=== PATIENT | female | born 1930 | race Caucasian/White ===

== ENCOUNTER 2016-11-20 11:38 | Inpatient (IN) | payer MEDICARE, SELFPAY ==
[~2016-11-20] VITALS: Ht 149.9 cm; Wt 54.6 kg
[2016-11-20] MEDS ORDERED: SODIUM CHLORIDE FLUSH 10ML SYR IVF ONE (12:30)
[2016-11-20 12:52] LABS: ASPARTATE AMINO TRANSFERASE 21 U/L (15-37); BLOOD UREA NITROGEN 20 mg/dL (7-18)
[2016-11-20 12:55] LABS: IS PT STATUS REG ER OR PRE ER? YES
[2016-11-20] MEDS ORDERED: FUROSEMIDE 40 MG/4 ML IV ONE (13:30)
[2016-11-20] MEDS ORDERED: ENOXAPARIN 40 MG/0.4 ML SQ SCH ×2 (14:00)
[2016-11-20] MEDS ORDERED: VANCOMYCIN PER PHARMACY MC PRN (14:00)
[2016-11-20] MEDS ORDERED: AMPICILLIN/SULBACTAM 1,500 MG in SODIUM CHLORIDE 0.9% 50 ML IV SCH (14:00)
[2016-11-20] MEDS ORDERED: MAGNESIUM SULFATE PMX 2GM/50ML 50 ML IV ONE (14:00)
[2016-11-20 16:50] VITALS: BP 106/71
[2016-11-20] MEDS: AMPICILLIN/SULBACTAM 1,500 MG in SODIUM CHLORIDE 0.9% 50 ML IV SCH (16:52)
[2016-11-20] MEDS ORDERED: PHARMACOKINETIC MONITORING MC PRN (17:00)
[2016-11-20] MEDS ORDERED: VANCOMYCIN PMX 1GM/200ML 200 ML IVPB ONE (17:30)
[2016-11-20 18:46] VITALS: BP 100/58
[2016-11-20 19:10] LABS: IS PT STATUS REG ER OR PRE ER? NO
[2016-11-20] MEDS ORDERED: ALBUTEROL/IPRATROPIUM 2.5MG/0.5MG, 3 ML NPPB PRN (22:30)
[2016-11-21] MEDS: AMPICILLIN/SULBACTAM 1,500 MG in SODIUM CHLORIDE 0.9% 50 ML IV SCH ×5 (00:30→20:17)
[2016-11-21 01:16] VITALS: BP 118/64
[2016-11-21 01:21] LABS: IS PT STATUS REG ER OR PRE ER? NO
[2016-11-21 07:08] LABS: BLOOD UREA NITROGEN 18 mg/dL (7-18)
[2016-11-21 07:40] LABS: ASPARTATE AMINO TRANSFERASE 17 U/L (15-37)
[2016-11-21 08:22] VITALS: BP 111/65
[2016-11-21] MEDS ORDERED: FUROSEMIDE 20 MG/2 ML IV SCH (09:00)
[2016-11-21] MEDS ORDERED: DEXTROSE 4 GM TAB.CHEW PO PRN (09:30)
[2016-11-21] MEDS ORDERED: GLUCAGON 1 MG IM PRN (09:30)
[2016-11-21] MEDS ORDERED: DEXTROSE 50%, 50ML SYRINGE IVPush PRN (09:30)
[2016-11-21] MEDS ORDERED: VANCOMYCIN PMX 1GM/200ML 200 ML IV SCH (10:00)
[2016-11-21] MEDS: LEVOTHYROXINE 100 MCG INJ IVPush SCH (10:02)
[2016-11-21] MEDS: SODIUM CHLORIDE FLUSH 10ML SYR IVF SCH ×2 (10:03→20:17)
[2016-11-21] MEDS: VANCOMYCIN PMX 1GM/200ML 200 ML IV SCH ×2 (11:12→13:04)
[2016-11-21 13:54] VITALS: BP 105/66
[2016-11-21] MEDS: D5%-0.45NACL+KCL 20MEQ 1,000 ML IV SCH (16:47)
[2016-11-21] MEDS: ENOXAPARIN 30 MG/0.3 ML SQ SCH (18:01)
[2016-11-21 19:05] VITALS: BP 120/80
[2016-11-22 01:34] VITALS: BP 103/58
[2016-11-22] MEDS: AMPICILLIN/SULBACTAM 1,500 MG in SODIUM CHLORIDE 0.9% 50 ML IV SCH ×4 (02:22→21:46)
[2016-11-22 04:49] LABS: ASPARTATE AMINO TRANSFERASE 13 U/L (15-37); BLOOD UREA NITROGEN 17 mg/dL (7-18)
[2016-11-22] MEDS: SODIUM CHLORIDE FLUSH 10ML SYR IVF SCH ×2 (07:55→22:10)
[2016-11-22] MEDS: LEVOTHYROXINE 100 MCG INJ IVPush SCH (07:55)
[2016-11-22 08:04] VITALS: BP 116/65
[2016-11-22] MEDS: D5%-0.45NACL+KCL 20MEQ 1,000 ML IV SCH (11:35)
[2016-11-22] MEDS ORDERED: POTASSIUM CHLORIDE 10% 20 MEQ/15 ML UDC PO SCH (13:00)
[2016-11-22] MEDS: HYDROCORTISONE 100 MG INJ. IVPush SCH ×2 (13:04→22:02)
[2016-11-22] MEDS: FUROSEMIDE 20 MG/2 ML IV SCH (13:04)
[2016-11-22 13:26] VITALS: BP 95/62
[2016-11-22 19:30] VITALS: BP 107/62
[2016-11-22] MEDS: POTASSIUM CHLORIDE 20 MEQ PACKET PO SCH (21:00)
[2016-11-22] MEDS: ENOXAPARIN 30 MG/0.3 ML SQ SCH (21:45)
[2016-11-22] MEDS: VANCOMYCIN PMX 1GM/200ML 200 ML IV SCH (22:46)
[2016-11-23 02:00] VITALS: BP 107/64
[2016-11-23] MEDS: AMPICILLIN/SULBACTAM 1,500 MG in SODIUM CHLORIDE 0.9% 50 ML IV SCH ×4 (02:58→20:58)
[2016-11-23] MEDS: HYDROCORTISONE 100 MG INJ. IVPush SCH ×3 (04:38→20:58)
[2016-11-23 05:44] LABS: BLOOD UREA NITROGEN 14 mg/dL (7-18)
[2016-11-23] MEDS: FUROSEMIDE 20 MG/2 ML IV SCH ×2 (07:22→20:58)
[2016-11-23] MEDS: SODIUM CHLORIDE FLUSH 10ML SYR IVF SCH ×2 (07:22→20:59)
[2016-11-23] MEDS: LEVOTHYROXINE 100 MCG INJ IVPush SCH (07:23)
[2016-11-23] MEDS: POTASSIUM CHLORIDE 20 MEQ PACKET PO SCH ×2 (07:23→20:58)
[2016-11-23 08:30] VITALS: BP 101/61
[2016-11-23] MEDS: D5%-0.45NACL+KCL 20MEQ 1,000 ML IV SCH (09:51)
[2016-11-23 13:43] VITALS: BP 101/64
[2016-11-23 14:42] VITALS: BP 144/79
[2016-11-23 20:04] VITALS: BP 104/63
[2016-11-23] MEDS: ENOXAPARIN 30 MG/0.3 ML SQ SCH (20:58)
[2016-11-24 00:40] VITALS: BP 104/45
[2016-11-24] MEDS: AMPICILLIN/SULBACTAM 1,500 MG in SODIUM CHLORIDE 0.9% 50 ML IV SCH (03:08)
[2016-11-24] MEDS: HYDROCORTISONE 100 MG INJ. IVPush SCH ×3 (05:29→21:35)
[2016-11-24 06:32] LABS: BLOOD UREA NITROGEN 16 mg/dL (7-18)
[2016-11-24 07:23] VITALS: BP 108/67
[2016-11-24] MEDS: FUROSEMIDE 20 MG/2 ML IV SCH (09:42)
[2016-11-24] MEDS: LEVOTHYROXINE 100 MCG INJ IVPush SCH (09:42)
[2016-11-24] MEDS: SODIUM CHLORIDE FLUSH 10ML SYR IVF SCH ×2 (09:43→21:35)
[2016-11-24] MEDS: D5%-0.45NACL+KCL 20MEQ 1,000 ML IV SCH (09:43)
[2016-11-24] MEDS: AMOXICILLIN/CLAV 500-125MG TABLET PO SCH ×2 (12:50→21:35)
[2016-11-24] MEDS: POTASSIUM CHLORIDE 10% 20 MEQ/15 ML UDC PO SCH ×2 (12:51→17:02)
[2016-11-24 13:49] VITALS: BP 101/66
[2016-11-24] MEDS: ENOXAPARIN 30 MG/0.3 ML SQ SCH (17:01)
[2016-11-24] MEDS: HYDROCORTISONE 20 MG TABLET PO SCH (17:01)
[2016-11-24] MEDS: FUROSEMIDE 20 MG TABLET PO SCH (17:01)
[2016-11-24 19:15] VITALS: BP 116/76
[2016-11-25 03:00] VITALS: BP 114/69
[2016-11-25] MEDS: HYDROCORTISONE 100 MG INJ. IVPush SCH (06:11)
[2016-11-25] MEDS: LEVOTHYROXINE 50 MCG TABLET PO SCH (06:11)
[2016-11-25 06:18] LABS: BLOOD UREA NITROGEN 21 mg/dL (7-18)
[2016-11-25 07:37] VITALS: BP 119/78
[2016-11-25] MEDS: FUROSEMIDE 20 MG TABLET PO SCH ×2 (09:18→16:55)
[2016-11-25] MEDS: SODIUM CHLORIDE FLUSH 10ML SYR IVF SCH ×2 (09:18→21:00)
[2016-11-25] MEDS: POTASSIUM CHLORIDE 10% 20 MEQ/15 ML UDC PO SCH ×2 (09:18→21:19)
[2016-11-25] MEDS: HYDROCORTISONE 20 MG TABLET PO SCH ×2 (09:18→16:54)
[2016-11-25] MEDS: AMOXICILLIN/CLAV 500-125MG TABLET PO SCH ×2 (11:04→21:19)
[2016-11-25 13:38] VITALS: BP 102/68
[2016-11-25] MEDS: ENOXAPARIN 30 MG/0.3 ML SQ SCH ×2 (19:00→21:19)
[2016-11-25 19:20] VITALS: BP 103/57
[2016-11-26 02:18] VITALS: BP 96/66
[2016-11-26] MEDS: LEVOTHYROXINE 50 MCG TABLET PO SCH (05:34)
[2016-11-26 06:48] LABS: BLOOD UREA NITROGEN 25 mg/dL (7-18)
[2016-11-26 07:11] VITALS: BP 114/73
[2016-11-26] MEDS: POTASSIUM CHLORIDE 10% 20 MEQ/15 ML UDC PO SCH (09:07)
[2016-11-26] MEDS: HYDROCORTISONE 20 MG TABLET PO SCH ×2 (09:07→17:37)
[2016-11-26] MEDS: SODIUM CHLORIDE FLUSH 10ML SYR IVF SCH ×2 (09:07→21:00)
[2016-11-26] MEDS: AMOXICILLIN/CLAV 500-125MG TABLET PO SCH ×2 (09:07→21:00)
[2016-11-26] MEDS: FUROSEMIDE 20 MG TABLET PO SCH (09:07)
[2016-11-26 12:54] VITALS: BP 103/71
[2016-11-26] MEDS ORDERED: ERGOCALCIFEROL 50,000 UNIT CAPSULE PO SCH (16:00)
[2016-11-26] MEDS: POTASSIUM CHLORIDE 20 MEQ TAB.ER.PRT PO SCH (17:37)
[2016-11-26 19:10] VITALS: BP 93/63
[2016-11-26] MEDS: ENOXAPARIN 30 MG/0.3 ML SQ SCH (20:00)
[2016-11-27 02:00] VITALS: BP 107/72
[2016-11-27] MEDS: LEVOTHYROXINE 50 MCG TABLET PO SCH (05:17)
[2016-11-27 06:29] LABS: BLOOD UREA NITROGEN 27 mg/dL (7-18)
[2016-11-27 08:21] VITALS: BP 91/60
[2016-11-27] MEDS: AMOXICILLIN/CLAV 500-125MG TABLET PO SCH ×2 (09:28→22:08)
[2016-11-27] MEDS: FUROSEMIDE 20 MG TABLET PO SCH (09:28)
[2016-11-27] MEDS: HYDROCORTISONE 20 MG TABLET PO SCH ×2 (09:28→17:07)
[2016-11-27] MEDS: POTASSIUM CHLORIDE 20 MEQ TAB.ER.PRT PO SCH (09:28)
[2016-11-27] MEDS: SODIUM CHLORIDE FLUSH 10ML SYR IVF SCH ×2 (09:29→22:08)
[2016-11-27 14:00] VITALS: BP 99/61
[2016-11-27] MEDS: ENOXAPARIN 30 MG/0.3 ML SQ SCH (17:07)
[2016-11-27 20:04] VITALS: BP 101/60
[2016-11-28 01:33] VITALS: BP 113/72
[2016-11-28] MEDS: LEVOTHYROXINE 50 MCG TABLET PO SCH (05:30)
[2016-11-28 06:08] LABS: BLOOD UREA NITROGEN 28 mg/dL (7-18)
[2016-11-28] MEDS: HYDROCORTISONE 20 MG TABLET PO SCH (08:44)
[2016-11-28] MEDS: FUROSEMIDE 20 MG TABLET PO SCH (08:44)
[2016-11-28] MEDS: AMOXICILLIN/CLAV 500-125MG TABLET PO SCH (08:44)
[2016-11-28] MEDS: POTASSIUM CHLORIDE 20 MEQ TAB.ER.PRT PO SCH (08:44)
[2016-11-28] MEDS: SODIUM CHLORIDE FLUSH 10ML SYR IVF SCH (08:45)
[2016-11-28 09:04] VITALS: BP 98/61
[2016-11-28 09:35] VITALS: BP 98/58
[2016-11-28 14:16] VITALS: BP 108/70
[2016-11-28] MEDS ORDERED: MULT-82 PO (14:45)
[2016-11-28] MEDS ORDERED: AMOX-367 PO (14:45)
[2016-11-28] MEDS ORDERED: LEVO50TA PO (14:45)
[2016-11-28] MEDS ORDERED: ERGO500017 PO (14:45)
[2016-11-28] MEDS ORDERED: POTA10TA5 PO (14:45)
[2016-11-28] MEDS ORDERED: HYDR20TA PO (14:45)
[2016-11-28] MEDS ORDERED: FURO20TA3 PO (14:45)
== END 2016-11-28 17:05 | disposition hospice, home (50) | DRG 871 ==
LOC: ED 13:01 → EDIP 13:22 → SUATTDRO 13:38 → 5SO 15:41
PROVIDERS: ADMIT Internal Medicine; ATTEND Internal Medicine
PROC: 0T9B70Z Drainage of Bladder with Drainage Device, Via Natural or Artificial Opening (ICD-10-PCS; principal; 2016-11-20)
DX: A41.9 Sepsis, unspecified organism (principal); G93.41 Metabolic encephalopathy; E43 Unspecified severe protein-calorie malnutrition; E40 Kwashiorkor; J69.0 Pneumonitis due to inhalation of food and vomit; I50.43 Acute on chronic combined systolic (congestive) and diastolic (congestive) heart failure; L03.115 Cellulitis of right lower limb; E87.1 Hypo-osmolality and hyponatremia; E27.40 Unspecified adrenocortical insufficiency; S22.31XA Fracture of one rib, right side, initial encounter for closed fracture; Z66 Do not resuscitate; D53.9 Nutritional anemia, unspecified; E03.9 Hypothyroidism, unspecified; E55.9 Vitamin D deficiency, unspecified; E87.6 Hypokalemia; H54.0 Blindness, both eyes; H91.90 Unspecified hearing loss, unspecified ear; Z51.5 Encounter for palliative care; I35.8 Other nonrheumatic aortic valve disorders; I48.0 Paroxysmal atrial fibrillation; X58.XXXA Exposure to other specified factors, initial encounter; Y93.89 Activity, other specified; Z87.891 Personal history of nicotine dependence; Y92.89 Other specified places as the place of occurrence of the external cause; Z79.899 Other long term (current) drug therapy; Z68.24 Body mass index [BMI] 24.0-24.9, adult; R13.10 Dysphagia, unspecified
CPT/HCPCS: 36415; 71010; 74230; 80048; 80053; 81003; 82306; 82607; 82746; 82962; 83735; 83880; 84439; 84443; 84481; 84484; 85025; 85610; 85730; 93005; 93306; 99285; J1650; J1940; J3370; J0295; J1720; J3475; J3480